=== PATIENT | male | born 1935 | race Caucasian/White ===

== ENCOUNTER 2017-09-29 08:18 | Emergency (ER) | payer MEDICARE ==
[2017-09-29] MEDS ORDERED: Sodium Chloride 0.9% 2.5 ML Syringe FLUSH PRN (08:24)
[2017-09-29] MEDS ORDERED: Ondansetron 4 MG/2 ML SDV IVPUSH ONE (08:24)
[2017-09-29] MEDS ORDERED: Glucagon,Human Recombinant 1 MG Vial IVPUSH ONE (08:24)
[2017-09-29] MEDS ORDERED: Sodium Chloride 0.9% 10 ML Syringe FLUSH PRN (08:24)
--- NOTE | 2017-09-29 08:27 | EDM.PDOC ---
ED HPI GENERAL MEDICAL PROBLEM - General Chief Complaint: ENT Problem Stated Complaint: DIFFICULTY SWALLOWING Time Seen by Provider: 09/29/17 08:19 - History of Present Illness INITIAL COMMENTS - FREE TEXT/NARRATIVE: HISTORY AND PHYSICAL: History of present illness: The patient is a 82-year-old male with a history of A. fib and prior history of esophageal spasms with esophageal food boluses and presents with same that started 45 minutes ago. The patient says he has been under a lot of stress and did not sleep well last night and then this morning was eating Divehi toast and sausage and he feels like a piece of food is stuck in his esophagus. He points to his sternal notch as the area of discomfort. He has no chest discomfort no shortness of breath no abdominal pain and he says he has a lot of phlegm that he has been spitting up but he has not actually vomited. The patient tells me that this is happened multiple times in the past and usually it goes away on its own but he did have to have endoscopy one time more than 6 years ago for this but they never told him he had a narrowing. He has no other complaints and was having a normal day prior to these events. The patient tells us that he does take Eliquis for his A. fib Review of systems: As per history of present illness and below otherwise all systems reviewed and negative. Past medical history: As per history of present illness and as reviewed below otherwise noncontributory. Surgical history: As per history of present illness and as reviewed below otherwise noncontributory. Social history: No reported history of drug or alcohol abuse. Family history: As per history of present illness and as reviewed below otherwise noncontributory. Physical exam: General: Well-developed well-nourished man who is nontoxic and speaking clearly in the ED. He is not breathless worse or have muffled voice. Vital signs are noted by me. HEENT: Atraumatic, normocephalic, pupils reactive, negative for conjunctival pallor or scleral icterus, mucous membranes moist, throat clear, neck supple, nontender, trachea midline. Lungs: Clear to auscultation, breath sounds equal bilaterally, chest nontender. No wheezing stridor or work of breathing Heart: S1S2, regular rate and rhythm on my evaluation, negative for clicks, rubs , or JVD. Abdomen: Soft, nondistended, nontender. Negative for masses or hepatosplenomegaly. Negative for costovertebral tenderness. Pelvis: Stable nontender. Genitourinary: Deferred. Rectal: Deferred. Extremities: Atraumatic, negative for cords or calf pain. Neurovascular unremarkable. Neuro: Awake, alert, oriented. Cranial nerves II through XII unremarkable. Cerebellum unremarkable. Motor and sensory unremarkable throughout. Exam nonfocal. Diagnostics: EKG chest x-ray Therapeutics: IV O2 monitor glucagon Zofran On reevaluation the patient says that he thinks that after the medications that he was able to get the sausage up without completely vomiting and he feels much improved. Since that time he has taken water without difficulty and is not spitting it up and is tolerating this well. I've advised him that he can be discharged home and that he should follow-up with his provider and/or one of our surgeons for elective endoscopy as needed and I've also advised him to strictly adhere to a soft diet for the next 1-2 days, Impression: Esophageal foreign body, resolved Definitive disposition and diagnosis as appropriate pending reevaluation and review of above. Throat Pain Score (Numeric/FACES): 4 - Related Data Allergies Allergy/AdvReac Type Severity Reaction Status Date / Time No Known Allergies Allergy Verified 09/29/17 08:27 Home Meds: Home Meds Apixaban [Eliquis] 5 mg PO DAILY 09/29/17 [History] Ascorbic Acid [Vitamin C] 1,000 mg PO DAILY 09/29/17 [History] Cholecalciferol (Vitamin D3) [Vitamin D3] 1 tab PO DAILY 09/29/17 [History] Furosemide [Lasix] 20 mg PO DAILY 09/29/17 [History] Multivit-Min/FA/Lycopene/Lut [Centrum Silver Tablet] 1 tab PO DAILY 09/29/17 [ History] [place]-3/DHA/Epa/Fish Oil [Fish Oil 1,000 mg Softgel] 1 cap PO DAILY 09/29/17 [ History] Potassium Chloride [Klor-Con 10] 10 meq PO DAILY 09/29/17 [History] Psyllium Husk [Fiber] 0.4 gm PO DAILY 09/29/17 [History] ED ROS GENERAL - Review of Systems Review Of Systems: ROS reveals no pertinent complaints other than HPI. ED EXAM, GENERAL - Physical Exam Exam: See Below (See dictation) Course - Vital Signs Last Recorded V/S: Last Vital Signs Temp 36.1 C 09/29/17 08:21 Pulse 59 L 09/29/17 10:16 Resp 18 09/29/17 10:16 BP 119/66 09/29/17 10:16 Pulse Ox 98 09/29/17 10:16 - Orders/Labs/Meds Orders: Active Orders 24 hr Category Date Time Status Cardiac Monitoring [RC] . DIRECTED Care 09/29/17 08:23 Active EKG Documentation Completion [RC] STAT Care 09/29/17 08:23 Active Oxygen Therapy, ED [RC] ASDIRECTED Care 09/29/17 08:23 Active Pulse Oximetry [RC] ASDIRECTED Care 09/29/17 08:23 Active Chest 1V Frontal [CR] Stat Exams 09/29/17 08:23 Taken Sodium Chloride 0.9% [Saline Flush] Med 09/29/17 08:24 Active 10 ml FLUSH ASDIRECTED PRN Sodium Chloride 0.9% [Saline Flush] Med 09/29/17 08:24 Active 2.5 ml FLUSH ASDIRECTED PRN Saline Lock Insert [OM.PC] Stat Oth 09/29/17 08:23 Ordered Medication Orders Sodium Chloride (Saline Flush) 10 ml FLUSH ASDIRECTED PRN PRN Reason: Keep Vein Open Last Admin: 09/29/17 08:45 Dose: 10 ml Sodium Chloride (Saline Flush) 2.5 ml FLUSH ASDIRECTED PRN PRN Reason: Keep Vein Open Last Admin: 09/29/17 08:45 Dose: 2.5 ml Meds: Medications Generic Name Dose Route Start Last Admin Trade Name Freq PRN Reason Stop Dose Admin Sodium Chloride 10 ml 09/29/17 08:24 09/29/17 08:45 Saline Flush FLUSH 10 ml ASDIRECTED PRN Administration Keep Vein Open Sodium Chloride 2.5 ml 09/29/17 08:24 09/29/17 08:45 Saline Flush FLUSH 2.5 ml ASDIRECTED PRN Administration Keep Vein Open Discontinued Medications Generic Name Dose Route Start Last Admin Trade Name Freq PRN Reason Stop Dose Admin Glucagon 1 mg 09/29/17 08:24 09/29/17 08:44 Glucagen IVPUSH 09/29/17 08:25 1 mg ONETIME ONE Administration Ondansetron HCl 4 mg 09/29/17 08:24 09/29/17 08:44 Zofran IVPUSH 09/29/17 08:25 4 mg ONETIME ONE Administration Departure - Departure Time of Disposition: : Disposition: Home, Self-Care 01 Condition: Good Clinical Impression: Esophageal foreign body Qualifiers: Encounter type: initial encounter Qualified Code(s): T18.108A - Unspecified foreign body in esophagus causing other injury, initial encounter - Discharge Information Referrals: PCP,None [Primary Care Provider] - Forms: ED Department Discharge Additional Instructions: The following information is given to patients seen in the emergency department who are being discharged to home. This information is to outline your options for follow-up care. We provide all patients seen in our emergency department with a follow-up referral. The need for follow-up, as well as the timing and circumstances, are variable depending upon the specifics of your emergency department visit. If you don't have a primary care physician on staff, we will provide you with a referral. We always advise you to contact your personal physician following an emergency department visit to inform them of the circumstance of the visit and for follow-up with them and/or the need for any referrals to a consulting specialist. The emergency department will also refer you to a specialist when appropriate. This referral assures that you have the opportunity for followup care with a specialist. All of these measure are taken in an effort to provide you with optimal care, which includes your followup. Under all circumstances we always encourage you to contact your private physician who remains a resource for coordinating your care. When calling for followup care, please make the office aware that this follow-up is from your recent emergency room visit. If for any reason you are refused follow-up, please contact the [facility] emergency department at and ask to speak to the emergency department charge nurse. [facility] Primary [facility]- Internal Medicine and [facility] [address] [place] [id number] [facility] Specialty Care-General Surgery Professional Building [address] [place] [id number] Please eat a soft diet small bites of food over the next 1-2 days. Push hydration and after 2 days please cut your food in small pieces and chew thoroughly before swallowing. Please contact one of our providers in the clinic for follow-up care and return to ER as needed and as discussed. - My Orders Last 24 Hours: My Active Orders 09/29/17 08:23 Cardiac Monitoring [RC] . DIRECTED EKG Documentation Completion [RC] STAT Oxygen Therapy, ED [RC] ASDIRECTED Pulse Oximetry [RC] ASDIRECTED Chest 1V Frontal [CR] Stat Saline Lock Insert [OM.PC] Stat 09/29/17 08:24 Sodium Chloride 0.9% [Saline Flush] 10 ml FLUSH ASDIRECTED PRN Sodium Chloride 0.9% [Saline Flush] 2.5 ml FLUSH ASDIRECTED PRN - Assessment/Plan Last 24 Hours: My Active Orders 09/29/17 08:23 Cardiac Monitoring [RC] . DIRECTED EKG Documentation Completion [RC] STAT Oxygen Therapy, ED [RC] ASDIRECTED Pulse Oximetry [RC] ASDIRECTED Chest 1V Frontal [CR] Stat Saline Lock Insert [OM.PC] Stat 09/29/17 08:24 Sodium Chloride 0.9% [Saline Flush] 10 ml FLUSH ASDIRECTED PRN Sodium Chloride 0.9% [Saline Flush] 2.5 ml FLUSH ASDIRECTED PRN
--- NOTE | 2017-10-01 11:55 | CR ---
EXAM DATE: 09/29/17 PATIENT'S AGE: 82 Patient: MELANIE PLUMMER Facility: [place], [place] Site . Site : [id number] Study: XRay Chest [id number]/26/2018 8:51:00 AM Ordering Physician: Florentino Arriola Final Report: INDICATION: Chest pain and SOB. TECHNIQUE: Upright portable AP image of the chest. COMPARISON: None. FINDINGS: Lungs clear. No pleural effusion or pneumothorax. Heart size and pulmonary vasculature within normal limits. No obvious rib fracture or other significant osseous abnormality. IMPRESSION: Negative chest. Dictated by Mike Wood MD @ Sep 29 2017 9:15AM (Electronic Signature) Report Signed by Proxy. REUBEN
== END 2017-09-29 10:57 | disposition home or self-care (01) ==
LOC: MW.ED 08:18
DX: T18.108A Unspecified foreign body in esophagus causing other injury, initial encounter (principal); I48.91 Unspecified atrial fibrillation; Z79.899 Other long term (current) drug therapy
CPT/HCPCS: 71045; 93005; 96374; 96375; 99284; J1610; J2405; 99283